=== PATIENT | male | born 1975 | race Caucasian/White ===

== ENCOUNTER → 2018-05-12 | Outpatient (CLI) | payer BC ==
[2018-05-12 14:13] LABS: HCT 44.9 % (39.0-53.0); HGB 15.4 gm/dL (13.0-17.5); MCH 30.6 pg (25.0-35.0); MCHC 34.3 g/dL (31.0-37.0); MCV 89.1 fL (80.0-100.0); Mean Platelet Volume 7.3; Platelet Count 239 k/uL (150-450); RBC 5.04 m/uL (4.30-5.90); RDW 12.3 % (11.5-15.5); WBC 5.8 k/uL (3.8-10.6)
== END | disposition home or self-care (01) ==
LOC: LABPAT 13:31
PROVIDERS: ATTEND Surgery Plastic and Reconstructive Surgery
DX: Z01.812 Encounter for preprocedural laboratory examination (principal)
CPT/HCPCS: 36415; 85027

== ENCOUNTER 2020-03-07 09:18 | Emergency (ER) | payer OTHER ==
[2020-03-07] MEDS ORDERED: KETOROLAC 30 MG/ML 1 ML VIAL IVP STA (09:30)
[2020-03-07] MEDS ORDERED: ORPHENADRINE 30 MG/ML 2 ML VIAL IVP STA (09:30)
[2020-03-07 09:55] LABS: Appearance,Urine Clear (Clear); Bilirubin,Urine Negative (Negative); Blood,Urine Negative (Negative); Color,Urine Yellow; Glucose,Urine (UA) Negative (Negative); Ketones,Urine Trace (Negative); Leukocyte Esterase,Urine Negative (Negative); Nitrite,Urine Negative (Negative); Protein,Urine Trace (Negative); Urobilinogen,Urine <2.0 mg/dL (<2.0)
--- NOTE | 2020-03-07 10:14 | CT ---
EXAMINATION TYPE: CT lumbar spine wo con DATE OF EXAM: 03/07/2020 COMPARISON: None, no plain film submitted for correlation HISTORY: Pain for [address] DLP: 1173.6 mGycm Automated exposure control for dose reduction was used. An unenhanced CT of the lumbar spine was performed. Bone and soft tissue window settings are submitt ed as well as coronal and sagittal reconstructions. FINDINGS: Lumbar vertebral bodies show preserved height, alignment, and bone mineralization. No evident spondyl olysis. Mild spinal curvature may be positional. Lumbar vertebral bodies are intact. L1-L2: Normal disc space height. No disc herniation protrusion or central stenosis. No facet joint arthropathy. No evidence for foraminal encroachment. L2-L3: Minimal posterior disc bulge contacts anterior thecal sac. No significant spinal stenosis or f oraminal encroachment. L3-L4: Minimal posterior disc bulge noted. No significant foraminal encroachment or spinal stenosis. There is contact the anterior thecal sac. L4-L5: Posterior broad-based disc bulge causes anterior mass effect on the thecal sac. Circumferentia l extension of disc material stents towards the neural foramina encroaching mildly. Only mild spinal stenosis. L5-S1: Posterior broad-based disc bulge may contact the proximal S1 nerve roots, anterior thecal sac. No significant spinal stenosis or foraminal encroachment. IMPRESSION: No paraspinal masses are identified. Lumbar segments are intact. Multilevel degenerative disc diseas e as described.
--- NOTE | 2020-03-07 10:14 | ED ---
Back Pain HPI - General Chief Complaint: Back Pain/Injury Stated Complaint: back pain Time Seen by Provider: 03/07/20 09:25 Source: patient, EMS, RN notes reviewed Limitations: no limitations - History of Present Illness Initial Comments: This a 45-year-old male presents emergency Department chief complaint of severe lumbar back pain. Patient is brought to emergency from via EMS. Patient does admit that he had some discomfort approximately one week ago when lifting table with another person. He states he does not think much of it the pain seemed to not worsen. Patient states last night he went to try issue when he lifts his left leg up states he has sudden onset of back pain and spasms. Patient states that he went home with her friend and states that the pain worsens morning to the point where it unbearable. He states he took some Valium 7:00 this morning states it made him is be able to sleep. Patient states that he has no bowel, bladder incontinence or retention. No point abdominal plain no flank pain. He doesn't that he's had some back issues in the past present no prior imaging. Patient denies any dysuria, hematuria no history kidney stones. Denies nausea vomiting. Patient was given fentanyl, Zofran by EMS. - Related Data Home Medications Medication Instructions Recorded Confirmed Cetirizine HCl [Zyrtec] 10 mg PO DAILY 05/12/18 03/07/20 Previous Rx's Medication Instructions Recorded Diazepam [Valium] 5 mg PO TID PRN 3 Days #9 tab 03/07/20 HYDROcodone/APAP 10-325MG [[place] 1 tab PO Q6HR PRN 3 Days #12 tab 03/07/20 10-325] Ibuprofen [Motrin] 800 mg PO Q6HR #20 tab 03/07/20 predniSONE 50 mg PO DAILY #5 tab 03/07/20 Allergies Allergy/AdvReac Type Severity Reaction Status Date / Time Penicillins Allergy Unknown Verified 03/07/20 10:04 Childhood Sulfa (Sulfonamide Allergy Nausea Verified 03/07/20 10:04 Antibiotics) Review of Systems ROS Statement: Those systems with pertinent positive or pertinent negative responses have been documented in the HPI. ROS Other: All systems not noted in ROS Statement are negative. Past Medical History Past Medical History: Asthma Additional Past Medical History / Comment(s): Exercise induced asthma as a teen, no problems since. History of Any Multi-Drug Resistant Organisms: None Reported Past Surgical History: Hernia Repair Additional Past Anesthesia/Blood Transfusion Reaction / Comment(s): Has never had anesthesia. Past Psychological History: No Psychological Hx Reported Smoking Status: Never smoker Past Alcohol Use History: None Reported Past Drug Use History: None Reported - Past Family History Mother Family Medical History: No Reported History General Exam Limitations: no limitations General appearance: alert, in no apparent distress Head exam: Present: atraumatic, normocephalic, normal inspection Neck exam: Present: normal inspection, full ROM. Absent: tenderness, meningismus, lymphadenopathy Respiratory exam: Present: normal lung sounds bilaterally. Absent: respiratory distress, wheezes, rales, rhonchi, stridor Cardiovascular Exam: Present: regular rate, normal rhythm, normal heart sounds. Absent: systolic murmur, diastolic murmur, rubs, gallop, clicks GI/Abdominal exam: Present: soft, normal bowel sounds. Absent: distended, tenderness, guarding, rebound, rigid Extremities exam: Present: other (Lower extremity neurovascular intact full range of motion strength 4/5 secondary to pain) Back exam: Present: tenderness (Mild lumbar), muscle spasm, paraspinal tenderness. Absent: full ROM (Decreased range of motion secondary to pain), vertebral tenderness Neurological exam: Present: reflexes normal. Absent: motor sensory deficit Skin exam: Present: warm, dry, intact, normal color. Absent: rash Course Vital Signs 03/07/20 09:31 Temperature 98 F Pulse Rate 74 Respiratory 18 Rate Blood Pressure 138/88 O2 Sat by Pulse 95 Oximetry Medical Decision Making - Medical Decision Making 45-year-old male presented for lumbar back pain. Patient had extreme pain upon arrival. Patient provided pain relief. CT shows evidence of disc bulging L4-L5 and L5-S1. He is neurovascularly intact with no red flag symptoms. Patient was able to sit up, ambulate with me throughout the department with mild discomfort. Patient feels comfortable being discharged with oral medications, follow-up and return for any worsening symptoms. - Lab Data Lab Results 03/07/20 Range/Units 09:35 Urine Color Yellow Urine Appearance Clear (Clear) Urine pH 6.0 (5.0-8.0) Ur Specific [place] 1.030 (1.001-1.035) Urine Protein Trace H (Negative) Urine Glucose (UA) Negative (Negative) Urine Ketones Trace H (Negative) Urine Blood Negative (Negative) Urine Nitrite Negative (Negative) Urine Bilirubin Negative (Negative) Urine Urobilinogen <2.0 (<2.0) mg/dL Ur Leukocyte Esterase Negative (Negative) Disposition Clinical Impression: Bulging lumbar disc, Lumbar back pain Disposition: HOME SELF-CARE Condition: Stable Instructions (If sedation given, give patient instructions): Acute Low Back Pain (ED) Additional Instructions: Please return to the Emergency Department if symptoms worsen or any other concerns. Prescriptions: Ibuprofen [Motrin] 800 mg PO Q6HR #20 tab HYDROcodone/APAP 10-325MG [[place] 10-325] 1 tab PO Q6HR PRN 3 Days #12 tab PRN Reason: pain predniSONE 50 mg PO DAILY #5 tab Diazepam [Valium] 5 mg PO TID PRN 3 Days #9 tab PRN Reason: spasms Is patient prescribed a controlled substance at d/c from ED?: Yes When asked, does pt state using other controlled substances?: No If prescribed controlled substance>3 days was MAPS reviewed?: Prescribed <3 Days If opioid is for acute pain is fill amount 7 days or less?: Yes If Rx opioid, was Start Talking consent form obtained?: Yes Referrals: Uche Balderas DO [Primary Care Provider] - 1-2 days
[2020-03-07] MEDS ORDERED: DIAZEPAM 5 MG/ML 2 ML INJ IVP STA (10:23)
[2020-03-07] MEDS ORDERED: HYDROmorphone 0.5 MG/0.5 ML SYRINGE IVP STA (10:23)
[2020-03-07] MEDS ORDERED: methylPREDNISolone SOD SUCCI 125 MG/2 ML VIAL IV STA (10:23)
[2020-03-07] MEDS ORDERED: HYDROcodone/APAP 10-325MG 1 EACH TAB PO ONE (12:38)
[2020-03-07 12:59] VITALS: BP 131/81; PULSE 90; RESP 16; TEMP 98.2
== END 2020-03-07 13:08 | disposition home or self-care (01) ==
LOC: EC 09:18
DX: M51.26 Other intervertebral disc displacement, lumbar region (principal); M51.27 Other intervertebral disc displacement, lumbosacral region; Z88.0 Allergy status to penicillin; Z88.2 Allergy status to sulfonamides; X50.0XXA Overexertion from strenuous movement or load, initial encounter
CPT/HCPCS: 81003; 72131; 99284; 96374; 96375 ×4; J2360; J2930; J3360; J1885; J1170